=== PATIENT | female | born 1960 | race Caucasian/White ===

== ENCOUNTER 2016-12-29 13:03 | Emergency (ER) | payer MEDICARE, OTHER ==
[~2016-12-29 13:03] MED LIST: ABILIFY10 MG PO; ACTOS DPS15 MG PO; ACTOS15 MG PO; ALPRAZOLAM0.5 MG PO; AMBIEN10 MG PO; ASA CHILDREN'S81 MG PO; ASPIR-LOW81 MG PO; ATARAX-DPS25 MG PO; AUGMENTIN 500500 MG PO; CULTURELLE1 CAP PO; DESYREL DPS150 MG PO; DUONEB DPS3 ML IH; EFFEXOR XR DPS150 MG PO; EFFEXOR XR150 MG PO; GABAPENTIN600 MG PO; GLUTOSE 1537.5 GM PO; IMODIUM DPS2 MG PO; LAMICTAL200 MG PO; LEVEMIR100 UNIT/1 SQ; LISINOPRIL-HCT1 EACH PO; MAALOX DPS30 ML PO; MEPERIDINE SQ; PRAVACHOL20 MG PO; SURFAK DPS240 MG PO; TYLENOL DPS325 MG PO; ULTRAM DPS50 MG PO; XANAX DPS1 MG PO; ZESTORETIC 10/11 TAB PO; ZITHROMAX500 MG PO
--- NOTE | 2017-01-04 15:06 | ER ---
ADMIT: 12/29/2016 RM/LOC: ER [facility] MR#: [id number] [id number] DEBORAH MONTOYA [address] [place] [address] Emergency Room Report SEX: F AGE: 56 : 1960 DATE: 12/29/2016 TIME: 1303 hours. Please refer to my T-sheet for complete H and P. HISTORY OF PRESENT ILLNESS: Briefly, the patient is a 56-year-old, who called EMS because she was short of breath and anxious. It got worse at 10 a.m. She recently was discharged from [facility] for pneumonia Thursday, she has been on steroids and antibiotics, and wearing oxygen. She has COPD history, but she got anxious, she could not remember whom she was supposed to followup with, felt more short of breath. She called the ambulance, by the time she gets here, she says she feels better. She said she should have taken one of her "Xanax" which she did not take. PHYSICAL EXAMINATION: VITAL SIGNS: Her blood pressure was 145/73, pulse 109, respiratory rate 16, sat 95% on 2 L, and temp 98.8. GENERAL: Slightly anxious. HEENT: Grossly normal. LUNGS: Mild wheeze. HEART: Regular. ABDOMEN: Soft. EXTREMITIES: Trace edema. EMERGENCY DEPARTMENT COURSE: Chest x-ray revealed a little bit left lower lobe atelectasis, but no major lobar infiltrate. CBC normal except white count 17.5. Chemistries are normal except glucose 142. Troponin was negative. EKG with sinus rhythm at 103, no changes. Gave her Ativan 1 mg IV, Decadron 10 IV, she was feeling much better, had resolution of symptoms. I called Dr. Mclean, he was on-call for Dr. Fruehling. They will see her in the clinic tomorrow and follow up. She felt comfortable. She had a family member, I talked to her in depth and ready for discharge. ASSESSMENT: 1. Left lower lobe infiltrate, most likely improving. 2. Chronic obstructive pulmonary disease. 3. Anxiety, improved. Stable at this point. PLAN: Follow up with [facility] tomorrow. Continue care. Iraj Dickey MD/ lori JOB #: [id number] CC: Kiran Loja MD, Attending Physician UNKNOWN, Family Physician
== END 2016-12-29 15:00 | disposition home or self-care (01) ==
LOC: ER 13:03
DX: J44.9 Chronic obstructive pulmonary disease, unspecified (principal); R91.8 Other nonspecific abnormal finding of lung field; F41.9 Anxiety disorder, unspecified; E11.9 Type 2 diabetes mellitus without complications; I10 Essential (primary) hypertension; Z87.891 Personal history of nicotine dependence; Z90.710 Acquired absence of both cervix and uterus; Z88.1 Allergy status to other antibiotic agents; Z88.5 Allergy status to narcotic agent; Z79.82 Long term (current) use of aspirin; Z79.899 Other long term (current) drug therapy

== ENCOUNTER → 2017-04-13 | Outpatient (CLI) | payer MEDICARE, OTHER ==
--- NOTE | 2017-04-17 15:48 | SS ---
ADMIT: 04/13/2017 RM/LOC: [facility] MR#: [id number] [address] [place] [id number] [address]BORAH MONTOYA [address] [place] [address] Sleep Study SEX: F AGE: 57 : 1960 STUDY DATE: 04/13/2017 CLINICAL HISTORY: A 57-year-old female, body mass index of 36.8, 66 inches tall, 230 pounds, known history of obstructive sleep apnea in the sleep lab for CPAP/BiPAP titration. TECHNICAL DESCRIPTION: CPAP/BiPAP titration performed on night of 04/13/2017, attended by a trained development technologist. TITRATION FINDINGS: TITRATION DESCRIPTION: The patient was initially titrated on CPAP from 5 cm to 19 cm then was started on BiPAP from to . SLEEP: Total time in bed is 477.5 minutes, total sleep time 362 minutes, sleep efficiency 75.8%. 77% hours spent in stage II sleep. No REM sleep was seen. BREATHING: The patient had persistence of obstructive hypopneas, and there was emergence of significant central apneas while on titration. During the study, there were 260 central apneas, 52 obstructive apneas, 112 obstructive hypopneas noted. The patient failed CPAP because of persistent obstructive events and because of central events. On BiPAP, there were also significant central apneas and obstructive apneas noted. This CPAP/BiPAP titration remained suboptimal because of persistence of obstructive and central events. OXYGEN SATURATION: Mean sleeping oxygen saturation is 86%. CARDIAC: Average heart rate is 78 beats per minute. MOVEMENTS/POSITION: During the study, the patient slept in the supine lateral position with no significant leg movements. ADMIT: 04/13/2017 RM/LOC: [facility] MR#: [id number] [id number] [address] [address]AH MONTOYA [address] [place] [address] Sleep Study SEX: F AGE: 57 : 1960 IMPRESSION/PLAN: Suboptimal CPAP/BiPAP titration because of persistent obstructive events as well as emergence of central events while on positive airway pressure. The patient failed CPAP because of persistent obstructive events and central apneas. On BiPAP, on titration up to , there were still ongoing central apneas and obstructive apneas noted. At this point in time, I would recommend a second night of BiPAP titration with head of bed elevation to 30 degrees. I would recommend starting BiPAP 15/10 and titrating upwards to eliminate all obstructive events. Recommend losing weight, avoiding sedatives or alcohol. Refrain from driving if excessively sleepy. Recommend avoiding sleeping in supine position. Clinical correlation needed. Second night of BiPAP titration is recommended. Uriel Okeefe MD/ lori JOB #: [id number] CC: Sergio Loera MD, Attending Physician Diogenes Isidro MD, Family Physician
== END | disposition home or self-care (01) ==
LOC: RESC 19:55
DX: G47.33 Obstructive sleep apnea (adult) (pediatric) (principal); G47.10 Hypersomnia, unspecified